=== PATIENT | male | born 1965 | race Caucasian/White ===

== ENCOUNTER → 2018-04-26 | Outpatient (CLI) | payer BC ==
--- NOTE | 2018-04-27 06:16 | PAP/PSG TECHNICIAN REPORT ---
[facility] Grit Blaster Polysomnogram Report Study name: None Report date: 04/27/2018 Study date: 04/26/2018 Referring Physician: DR. ROMANO Name: NAOMY STANFORD Interpreting Physician: Naomy Romano M.D. Date of : 1965 Grit Blaster: Franki De La Garza RPSGT. Sex: Male Age: 53 StudyType: PSG Weight: 237 lbs 17 inches Height: 53 years, Height 5' 10" Neck Circum: BMI: 34 Medications: DULOXETINE HCL 20 MG, LEVOTHYROXINE SODIUM 200 MCG Patient History PATIENT HAS HISTORY OF SNORING, FATIGUE AND WITNESS APNEAS. HE ALSO HAS HISTORY OF POSSIBLE MEMORY LOSS. HE IS HERE TODAY FOR AN EVALUATION FOR KRISTIAN. ESS = 12 RM 5 Parameters Monitored NPSG: E1-M2, E2-M1, Fp1-M2, Fp2-M1, F3-M2, F4-M2, F4-M1, C3-M2, C4-M2, C4-M1, O1-M2, O2-M2, O2-M1, T3-M2, T4-M1, P3-M2, P4-M1, CHIN1, CHIN2, HR, EKG, Legs, PFLOW, SNOR, FLOW, CFLOW, Tidal Volume, THOR, ABDO, SpO2, PLTH, CPRESS, ETCO2 Wave, ETCO2, pH Sleep Architecture Sleep Stages Time at Lights Off 9:35:59 PM STAGES Time (min.) TST (%) Time at Lights On 5:34:59 AM Wake 166.5 -- Total Recording Time (TRT) 479.50 min. N1 17.5 6 Total Sleep Period (TSP) 403.5 min. N2 200.5 64 Total Sleep Time (TST) 312.5min. N3 42.0 13 Awake Time 167.0 min. REM 52.5 17 Wake after Sleep Onset 96.0 min. Sleep Efficiency (SE) 65 % Sleep Onset Latency (ADRIANA) 70.5 min. Number of Stage 1 Shifts None Awakenings 12 Stage Changes 52 Number of REM periods 2 REM 52.5 17 REM Latency 298.0 min. NREM 260.0 83 Body Position Analysis Supine Right Left Side Prone Vertical Total Sleep Time (min.) 332.7 82.0 49.0 131.01 0.0 0.0 Total Sleep Time (%) 58% 26% 16% 42 0% N/A% Total Sleep Time REM (min.) 40.3 12.2 0.0 None 0.0 0.0 Total Sleep Time NREM (min.) 141.2 69.8 49.0 None 0.0 0.0 Intermittent Wake (min.) 151.2 10.0 5.3 None 0.0 0.0 Total Sleep Period (%) 65% None None None None None Arousals Myoclonus (PLM) * Events Count Index Events Count Index Spontaneous 45 9 Events Awake (PLMW) 67 24.1 Respiratory 11 2.1 Events Asleep w/ Arousal (PLMA) 25 4.8 PLM 25 5 Events Asleep w/o Arousal (PLMS) 409 78.5 Snoring 15 3 Total Asleep 434 83.3 Total 96 18 Total 501 63 Respiratory Analysis * CA OA MA CH H RERA Total Count 0 3 1 0 91 0 95 Index 0.0 0.6 0.2 0 17.5 0 18.2 Mean Duration 0.0 13.9 18.7 0.00 19.2 0.0 19.0 Longest Duration 0.0 15.7 18.7 0.00 18.7 0.0 50.1 Respiratory Event Summary Total Supine ~Supine Right Left Prone REM NREM Apneas Count 4 4 0 0 0 N/A 1 3 Index 0.8 1 0 0.0 0.0 N/A 1 1 Hypopneas (4% Desat) Count 91 64 27 22 5 N/A 40 51 Index 17.5 21.2 12 16.1 6.1 N/A 45.7 11.8 Apneas & All Hypopneas Count 95 68 27 22 5 N/A 41 54 Index 18.2 22 12 16 6 N/A 46.9 12.5 Respiratory Events (Floorman+All Hyp+RERA) Count 95 68 27 22 5 N/A 41 54 Index 18.2 22 12 16.1 6.1 N/A 46.9 12.5 Respiratory Related Arousal Count 11 68 3 1 2 N/A 2 9 Index 2.1 3 1 1 2 N/A 2 2 Snoring Analysis Supine Right Left Prone REM NREM Total Snore duration 18.8 min Snores count 206 416 411 N/A 52 981 1,033 Snore mean duration 1.1 Sec Snores index 68 304 503 N/A 59.4 226.4 198.3 TST with snoring (%) 6.0% Desaturation Event Summary: Minimum %SpO2 Event Count Mean/Min/Max Duration(sec.) Desaturation Index % Time In Bed > 90 66 31.9 / 8.5 / 56.3 26.6 31.4 86 - 90 47 24.3 / 6.0 / 55.4 9.1 65.6 81 - 85 9 18.9 / 6.0 / 46.0 45.9 2.5 76 - 80 1 10.0 / 10.0 / 10.0 26.2 0.5 71 - 75 0 N/A 0.0 0.0 66 - 70 0 N/A 0.0 0.0 61 - 65 0 N/A 0.0 0.0 56 - 60 0 N/A 0.0 0.0 51 - 55 0 N/A 0.0 0.0 < 50 0 N/A 0.0 0.0 Total REM NREM Awake <50% 0.0 min. 0.0 min. 0.0 min. 0.0 min. 51 - 60% 0.0 min. 0.0 min. 0.0 min. 0.0 min. 61 - 70% 0.0 min. 0.0 min. 0.0 min. 0.0 min. 71 - 80% 2.3 min. 2.3 min. 0.0 min. 0.0 min. 81 - 90% 322.5 min. 23.8 min. 188.5 min. 110.2 min. 91 - 100% 149.0 min. 26.4 min. 71.3 min. 51.3 min. Average 90 90 89 90 Minimum SpO2 76 76 84 84 Desaturation Event Index 12.4 51.4 12.0 1.1 # Desat. Events below 89% 76 33 42 1 Time(%) with Saturation below 89% 25.5 4.0 18.4 3.0 Time(min.) with Saturation below 89% 120.7 18.9 87.4 14.4 Time (mins) REM (mins) NREM (mins) % of TST SpO2 Below 90% 91 41 N50 51.6 SpO2 Below 88% 36 0 0 16 Heart Rate Analysis Min (bpm) Max (bpm) Average (bpm) Awake 54 101 71 NREM 50 103 67 REM 55 92 67 Overall 50 103 67 Supplemental O2 Values Minimum O2 level: None Value Start Time End Time Grit Blaster Comments Mr. Stanford slept in the right, left and supine positions. No cardiac arrhythmia noted. Leg movements noted. Bruxism noted. Snoring was noted and scored as a 3 on a scale of 1 through 5. (0=no snoring, 5=snoring loud enough to be heard through a closed door or down the baer way) Mr. Stanford awoke to use the restroom 1 time during the night. Mr. Stanford stated I did not sleep as well as I do when I am in my own bed. The final report will be interpreted and signed by a sleep physician. The completed physician report will then be placed in the patient medical record. Therapy (cm H2O) 0 TIB (min.) 479.0 TST (min.) 312.5 Sleep Onset (min.) 70.5 REM Onset From Sleep (min.) 298.0 Sleep Efficiency % 65 Wakefulness (%) 35 Wakefulness (min.) 167.0 NREM 1 (%) 6 NREM 1 (min.) 17.5 NREM 2 (%) 64 NREM 2 (min.) 200.5 NREM 3 (%) 13 NREM 3 (min.) 42.0 REM (%) 17 REM (min.) 52.5 # Arousals 96 Arousal Index 18 # Snore 1,033 Snore Index 198.3 AHI 18.2 AHI Supine 22 AHI Non-Supine 12 NREM AHI 12.5 REM AHI 46.9 RDI 18.2 # Obstructive Apnea 3 # Central Apnea 0 # Mixed Apnea 1 # Hypopneas 91 RERAs 0 Total Respiratory Events 96 Time Below SpO2 89% (min.) 106.2 Mean NREM SpO2 (%) 89 Mean REM SpO2 (%) 90 Mean Sleep SpO2 (%) 90 Min NREM SpO2 (%) 84 Min REM SpO2 (%) 76 Position Supine (min.) 332.7 Position Non-supine (min.) 131.0 LM Index Sleep 83.3 LM Index NREM 95.8 LM Index REM 21.7 Mean Heart Rate (bpm) 67 Min Heart Rate (bpm) 50
--- NOTE | 2018-05-02 08:03 | POLYSOMNOGRAPH REPORT ---
CLINICAL DATA: A 53-year-old male with BMI of [address] Jerome, , and myself for a sleep study with symptoms of fatigue, snoring, and witnessed apneic episodes with cognitive dysfunction. SLEEP ARCHITECTURE: Total sleep period was 403.5 minutes. Total sleep time was 312.5 minutes divided between 260 minutes of non-REM sleep and 52.5 minutes of REM sleep. Sleep latency was delayed at 70.5 minutes. REM latency was delayed at 298 minutes. Sleep efficiency was reduced at 65%. Wake after sleep onset was elevated at 96 minutes. Sleep consisted of stage N1 6%, stage N2 64%, stage N3 13%, and REM 17%. AROUSAL DATA: 96 arousals were recorded for an index of 18 per hour. PLM DATA: Significantly elevated limb movements during sleep were noted. There were 434 limb movements during sleep noted for an index of 83.3 per hour with arousal index of 4.8 per hour. RESPIRATORY DATA: Moderate sleep apnea was documented. The AHI was 18.2. There were 3 obstructive and 1 mixed apneic episodes. The longest duration of apnea was 18.7 seconds. There were 91 hypopneic episodes with a mean duration of 19.2 seconds. OXIMETRY DATA: Nocturnal hypoxemia was seen. Oxygen kai was 76% during REM. Mean saturation was 90%. Time below 88% was 36 minutes. EKG: Heart rates ranged from 50-103 beats per minute. No arrhythmias were noted. MARINE ENGINE MECHANIC'S COMMENTS: The patient slept in the right, left, and supine position. Snoring was moderate, rated 3 on a scale of 1-5. The patient did have bruxism noted. IMPRESSION: 1. Moderate sleep apnea/hypopnea with nocturnal hypoxemia. 2. Significantly elevated limb movements during sleep consistent with periodic limb movement disorder. 3. Bruxism. RECOMMENDATIONS: The patient may benefit from a repeat sleep study with CPAP or use of an oral appliance. TANISHA
== END | disposition home or self-care (01) ==
LOC: C.NEUR 21:00
PROVIDERS: ATTEND Internal Medicine Pulmonary Disease
DX: G47.30 Sleep apnea, unspecified (principal); G47.63 Sleep related bruxism; R53.83 Other fatigue; R06.83 Snoring; G47.61 Periodic limb movement disorder